=== PATIENT | male | born 1990 | race Caucasian/White ===

== ENCOUNTER 2016-08-23 10:47 | Emergency (ER) | payer OTHER ==
[2016-08-23 11:33] VITALS: RESP 20
--- NOTE | 2016-08-23 12:56 | ED ---
Skin/Abscess/FB HPI - General Chief complaint: Skin/Abscess/Foreign Body Stated complaint: allergic reaction Time Seen by Provider: 08/23/16 12:48 Source: patient, RN notes reviewed Mode of arrival: ambulatory Limitations: no limitations - History of Present Illness Initial comments: Patient is a 25-year-old male presents to the emergency room for evaluation of bilateral hand rash. Patient states he woke up yesterday morning with both of his hands burning. Patient states the rash has spread over both of his hands through the day today. Patient states his hands are very itchy and burn. Patient states he has red spots all over his hands. Patient denies new detergents or body washes, shampoos, lotions. Patient denies any new plants or pets in the household. Patient denies any new medications. Patient does state he was helping his friend clean out a lawnmower about 3 days ago and might have been exposed to something then. Patient denies fevers or chills. Patient denies headache or dizziness. Patient denies cough or sore throat. Patient denies chest pain or shortness of breath. Patient states he took Motrin with no relief of symptoms. - Related Data Previous Rx's Medication Instructions Recorded Famotidine [Pepcid] 20 mg PO DAILY 5 Days 08/23/16 predniSONE 50 mg PO DAILY 4 Days 08/23/16 Allergies Allergy/AdvReac Type Severity Reaction Status Date / Time No Known Allergies Allergy Verified 08/23/16 11:32 Review of Systems ROS Statement: Those systems with pertinent positive or pertinent negative responses have been documented in the HPI. ROS Other: All systems not noted in ROS Statement are negative. Past Medical History Past Medical History: No Reported History History of Any Multi-Drug Resistant Organisms: None Reported Additional Past Surgical History / Comment(s): eye surgery, kidney surgery Past Psychological History: No Psychological Hx Reported Smoking Status: Former smoker Past Alcohol Use History: None Reported Past Drug Use History: None Reported General Exam - General Exam Comments Initial Comments: Sitting in exam room, no distress. Limitations: no limitations General appearance: alert, in no apparent distress Head exam: Present: atraumatic, normocephalic, normal inspection Eye exam: Present: normal appearance ENT exam: Present: normal exam Neck exam: Present: normal inspection Respiratory exam: Present: normal lung sounds bilaterally. Absent: respiratory distress Cardiovascular Exam: Present: regular rate, normal rhythm, normal heart sounds Extremities exam: Present: normal inspection Back exam: Present: normal inspection Neurological exam: Present: alert, oriented X3, CN II-XII intact Psychiatric exam: Present: normal affect, normal mood Skin exam: Present: warm, dry, other (Dry nonraised erythematous circular lesions over bilateral hands) Course Vital Signs 08/23/16 11:31 Temperature 97.8 F Pulse Rate 53 L Respiratory 20 Rate Blood Pressure 133/86 O2 Sat by Pulse 100 Oximetry Medical Decision Making - Medical Decision Making Patient is a 25-year-old male presents emergency room for evaluation of bilateral hand rash. Rash consistent with possible contact dermatitis of unknown etiology. Patient given Solu-Medrol, Pepcid and Benadryl. Will send patient home with Pepcid and prednisone advised him to follow-up with his primary care provider for reevaluation. Advised patient to return for worsening symptoms. Patient states he understands everything that was discussed with him. Case discussed with Dr. Contreras. Disposition Clinical Impression: Contact dermatitis Disposition: HOME SELF-CARE Condition: Good Instructions: Contact Dermatitis (ED) Additional Instructions: Take Benadryl every 4-6 hours. Take prednisone and Pepcid as directed. Please follow-up with primary care provider in 24-48 hours for reevaluation. If any new symptom arises or symptoms worsen, return to ER as soon as possible. Prescriptions: Famotidine [Pepcid] 20 mg PO DAILY 5 Days predniSONE 50 mg PO DAILY 4 Days Referrals: None,Stated [Primary Care Provider] - 1-2 days Time of Disposition: 13:25
[2016-08-23] MEDS: diphenhydrAMINE 50 MG CAP PO STA (13:14)
[2016-08-23] MEDS: methylPREDNISolone SOD SUCCI 125 MG/2 ML VIAL IM ONE (13:14)
[2016-08-23] MEDS: FAMOTIDINE 20 MG TAB PO STA (13:14)
[2016-08-23 13:48] VITALS: BP 123/56; PULSE 59; TEMP 98.3
== END 2016-08-23 13:40 | disposition home or self-care (01) ==
LOC: EC 10:47
DX: L25.9 Unspecified contact dermatitis, unspecified cause (principal); Z87.891 Personal history of nicotine dependence
CPT/HCPCS: 99283; 96372; J2930

== ENCOUNTER 2021-08-08 12:16 | Inpatient (IN) | payer MEDICARE, OTHER ==
[2021-08-08 13:17] LABS: Basophils # (A) 0.1 k/uL (0-0.2); Basophils % (A) 1 %; Eosinophils # (A) 0.4 k/uL (0-0.7); Eosinophils % (A) 3 %; HCT 48.5 % (39.0-53.0); HGB 17.2 gm/dL (13.0-17.5); Lymphocytes # (A) 1.7 k/uL (1.0-4.8); Lymphocytes % (A) 12 %; MCH 30.4 pg (25.0-35.0); MCHC 35.4 g/dL (31.0-37.0); MCV 85.9 fL (80.0-100.0); Mean Platelet Volume 9.4; Monocytes # (A) 0.6 k/uL (0-1.0); Monocytes % (A) 4 %; Neutrophils # (A) 10.7 k/uL (1.3-7.7); Neutrophils % (A) 78 %; Platelet Count 240 k/uL (150-450); RBC 5.64 m/uL (4.30-5.90); RDW 13.3 % (11.5-15.5); WBC 13.7 k/uL (3.8-10.6)
[2021-08-08 13:32] LABS: Appearance,Urine Cloudy (Clear); Bacteria,Urine Occasional /hpf; Bilirubin,Urine Negative (Negative); Blood,Urine Small (Negative); Color,Urine Light Yellow; Glucose,Urine (UA) Negative (Negative); Ketones,Urine Negative (Negative); Leukocyte Esterase,Urine Large (Negative); Nitrite,Urine Negative (Negative); Protein,Urine Trace (Negative); RBC,Urine 7 /hpf (0-5); Squamous Epithelial Cell,Urine 1 /hpf (0-4); Urobilinogen,Urine <2.0 mg/dL (<2.0); WBC,Urine 91 /hpf (0-5)
[2021-08-08 13:49] LABS: ALT 21 U/L (4-49); AST 34 U/L (17-59); African American GFR (CKD) >90 (>60 ml/min/1.73 sqM); Albumin 4.9 g/dL (3.5-5.0); Alkaline Phosphatase 73 U/L (38-126); Amylase 86 U/L (30-110); Anion Gap 7 mmol/L; Blood Urea Nitrogen 12 mg/dL (9-20); Calcium 9.8 mg/dL (8.4-10.2); Carbon Dioxide 27 mmol/L (22-30); Chloride 105 mmol/L (98-107); Glucose 92 mg/dL (74-99); Lipase 51 U/L (23-300); Non-African American GFR(CKD) >90 (>60 ml/min/1.73 sqM); Sodium 139 mmol/L (137-145); Total Bilirubin 0.9 mg/dL (0.2-1.3); Total Protein 8.4 g/dL (6.3-8.2)
--- NOTE | 2021-08-08 13:51 | ED ---
Abdominal Pain HPI - General Chief Complaint: Abdominal Pain Stated Complaint: Left Side Kidney pain Time Seen by Provider: 08/08/21 12:24 Source: patient, RN notes reviewed Mode of arrival: ambulatory Limitations: no limitations - History of Present Illness Initial Comments: This is a 30-year-old male who presents emergency department for left flank carlos n. Patient was woken up this morning by the flank pain. Denies any abdominal pain. He has not taken anything for the pain at this point. Denies any modifying factors. Pain is described as sharp and stabbing. He did have a right nephrectomy when he was around 6 years old, states that he was told that his kidney was not functioning. Patient denies any dysuria or hematuria. Denies any fevers, chills, nausea, or vomiting. He has no history of kidney stones. MD Complaint: flank pain (left) Radiation: none Migration to: no migration Quality: stabbing, sharp Consistency: constant Associated Symptoms: denies other symptoms - Related Data Home Medications Medication Instructions Recorded Confirmed No Known Home Medications 06/18/17 08/08/21 Allergies Allergy/AdvReac Type Severity Reaction Status Date / Time No Known Allergies Allergy Verified 08/08/21 13:59 Review of Systems ROS Statement: Those systems with pertinent positive or pertinent negative responses have been documented in the HPI. ROS Other: All systems not noted in ROS Statement are negative. Constitutional: Denies: fever, chills ENT: Denies: ear pain, throat pain Respiratory: Denies: cough, dyspnea Cardiovascular: Denies: chest pain, palpitations Gastrointestinal: Denies: abdominal pain, nausea, vomiting, diarrhea Genitourinary: Denies: urgency, dysuria Musculoskeletal: Reports: other (left flank pain) Skin: Denies: rash Neurological: Denies: headache Past Medical History Past Medical History: No Reported History History of Any Multi-Drug Resistant Organisms: None Reported Additional Past Surgical History / Comment(s): eye surgery, kidney surgery Past Psychological History: No Psychological Hx Reported Smoking Status: Current every day smoker Past Alcohol Use History: None Reported Past Drug Use History: Marijuana - Past Family History Mother Family Medical History: No Reported History Father Additional Family Medical History / Comment(s): bone cancer General Exam Limitations: no limitations General appearance: alert, in distress Head exam: Present: atraumatic, normocephalic, normal inspection Respiratory exam: Present: normal lung sounds bilaterally. Absent: respiratory distress, wheezes, rales, rhonchi, stridor Cardiovascular Exam: Present: regular rate, normal rhythm, normal heart sounds. Absent: systolic murmur, diastolic murmur, rubs, gallop, clicks GI/Abdominal exam: Present: soft, normal bowel sounds. Absent: distended, tenderness, guarding, rebound, rigid Back exam: Present: CVA tenderness (L). Absent: CVA tenderness (R) Neurological exam: Present: alert, oriented X3, CN II-XII intact Psychiatric exam: Present: normal affect, normal mood Course Vital Signs 08/08/21 08/08/21 12:18 14:41 Temperature 97.1 F L 97.9 F Pulse Rate 91 78 Respiratory 20 16 Rate Blood Pressure 147/52 138/86 O2 Sat by Pulse 99 98 Oximetry Medical Decision Making - Medical Decision Making This is a 30-year-old male who presents to the emergency department for left flank pain. Lab work obtained revealed an elevated white count with left shift. Urine appears infected, and his computed tomography scan revealed multiple irregularities. Irregularities include mild to moderate hydronephrosis without any identified calculus. He also has prostatomegaly and a cystic structure along the midline of the prostate gland. There is also suggestion that the cystic structure may be causing obstruction and subsequently the hydronephrosis. Also has moderate circumferential bladder wall thickening, consistent with a cystitis. Patient will be given 1 g of IVP Rocephin. Will plan to admit the patient for pain management and further evaluation by urology. Discussed with the patient that because he only has one kidney, we are going to take extra pr ecautions. Patient is in agreement with this plan. This case was discussed in detail with the attending ED physician. Presentation, findings, and treatment plan discussed in detail as well. - Lab Data Result diagrams: 08/08/21 12:58 08/08/21 12:58 Lab Results 08/08/21 08/08/21 08/08/21 Range/Units 12:58 12:58 12:58 WBC 13.7 H (3.8-10.6) k/uL RBC 5.64 (4.30-5.90) m/uL Hgb 17.2 (13.0-17.5) gm/dL Hct 48.5 (39.0-53.0) % MCV 85.9 (80.0-100.0) fL MCH 30.4 (25.0-35.0) pg MCHC 35.4 (31.0-37.0) g/dL RDW 13.3 (11.5-15.5) % Plt Count 240 (150-450) k/uL MPV 9.4 Neutrophils % 78 % Lymphocytes % 12 % Monocytes % 4 % Eosinophils % 3 % Basophils % 1 % Neutrophils # 10.7 H (1.3-7.7) k/uL Lymphocytes # 1.7 (1.0-4.8) k/uL Monocytes # 0.6 (0-1.0) k/uL Eosinophils # 0.4 (0-0.7) k/uL Basophils # 0.1 (0-0.2) k/uL Sodium 139 (137-145) mmol/L Potassium 5.0 (3.5-5.1) mmol/L Chloride 105 (98-107) mmol/L Carbon Dioxide 27 (22-30) mmol/L Anion Gap 7 mmol/L BUN 12 (9-20) mg/dL Creatinine 0.86 (0.66-1.25) mg/dL Est GFR (CKD-EPI)AfAm >90 (>60 ml/min/1.73 sqM) Est GFR (CKD-EPI)NonAf >90 (>60 ml/min/1.73 sqM) Glucose 92 (74-99) mg/dL Calcium 9.8 (8.4-10.2) mg/dL Total Bilirubin 0.9 (0.2-1.3) mg/dL AST 34 (17-59) U/L ALT 21 (4-49) U/L Alkaline Phosphatase 73 (38-126) U/L Total Protein 8.4 H (6.3-8.2) g/dL Albumin 4.9 (3.5-5.0) g/dL Amylase 86 (30-110) U/L Lipase 51 (23-300) U/L Urine Color Light Yellow Urine Appearance Cloudy (Clear) Urine pH 6.0 (5.0-8.0) Ur Specific [place] 1.010 (1.001-1.035) Urine Protein Trace H (Negative) Urine Glucose (UA) Negative (Negative) Urine Ketones Negative (Negative) Urine Blood Small H (Negative) Urine Nitrite Negative (Negative) Urine Bilirubin Negative (Negative) Urine Urobilinogen <2.0 (<2.0) mg/dL Ur Leukocyte Esterase Large H (Negative) Urine RBC 7 H (0-5) /hpf Urine WBC 91 H (0-5) /hpf Ur Squamous Epith Cells 1 (0-4) /hpf Urine Bacteria Occasional H (None) /hpf - Radiology Data Radiology results: report reviewed, image reviewed Disposition Clinical Impression: Hydronephrosis of left kidney, Cyst of prostate, Urinary tract infection, H/O right nephrectomy Disposition: ADMITTED IP TO THIS HOSP
--- NOTE | 2021-08-08 14:09 | CT ---
EXAMINATION TYPE: CT abdomen pelvis wo con DATE OF EXAM: 08/08/2021 COMPARISON: None HISTORY: 30-year-old male Abdominal pain, left flank. Possible kidney stone CT DLP: 287.4 mGycm. Automated exposure control for dose reduction was used. TECHNIQUE: Contiguous axial scanning of the abdomen and pelvis without IV contrast. Coronal and sagit georgi reconstructions performed. FINDINGS: Heart normal size without pericardial effusion. Lung bases clear without pleural effusion. Extreme hepatic dome excluded from view. There is some breathing motion artifact noted. Otherwise, visualized noncontrast liver, gallbladder, adrenal glands, spleen, and pancreas show no gr oss of mammography. Some prominent lymph nodes in the right lower quadrant mesentery measuring up to 8 mm. There appears to be some nonspecific fat stranding in the pericecal mesentery on axial image 56. Norm al appendix is partially visualized, coronal image 35. Right kidney surgically absent. There appears to be mild to moderate left hydronephrosis and mild lef t hydroureter. No renal calculus or stone along the course of the ureters seen. Moderate circumferential bladder wall thickening. Prominent bladder distention. Prostate gland enlarg ement measuring 5.3 cm wide. There appears to be a 1.8 cm wide by 2.2 cm craniocaudal cystic lesion o f the midline prostate gland, axial image 69 and sagittal image 56. Scattered mild stool. More moderate to large within the rectum distending up to 6.7 cm wide. No abnor mal fluid collection in the pelvis or pelvic lymphadenopathy seen. Bones: No osseous destructive process. IMPRESSION: 1. 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 Clinically correlate. 2. There is mild to moderate hydronephrosis left kidney but without any suspicious calculus identifi ed. 3. Prostatomegaly at 5.3 cm wide, unusual for patient's age. In addition, there is a 2.2 cm cystic s tructure along the midline prostate gland. Differential considerations include prostatic utricle cyst (which has an association with unilateral renal agenesis), Mullerian duct cyst, cystic change relati ng to BPH, or prostatic abscess. Further clinical correlation recommended. This cystic structure may be causing urethral obstruction given the left-sided hydronephrosis. 4. Moderate circumferential bladder wall thickening could represent chronic bladder wall hypertrophy or cystitis. 5. Nonspecific pericecal fat stranding in the right lower quadrant. The etiology is unclear as we ar e able to visualize segments of a normal appendix. Consider short interval follow-up and further clin ical correlation.
[2021-08-08] MEDS ORDERED: cefTRIAXone IN SWFI 1,000 MG/10 ML SYRINGE IVP STA (14:25)
[2021-08-08] MEDS ORDERED: HYDROmorphone 0.5 MG/0.5 ML SYRINGE IVP STA (14:25)
[2021-08-08] MEDS ORDERED: SODIUM CHLORIDE 0.9% 1,000 ML IV STA (14:25)
[2021-08-08] MEDS ORDERED: ONDANSETRON 4 MG/2 ML VIAL IVP STA (14:25)
[2021-08-08] MEDS ORDERED: LORazepam 2 MG/ML INJ IV PRN (15:53)
[2021-08-08] MEDS ORDERED: HYDROmorphone 1 MG/ML 1 ML SYRINGE IVP PRN (15:53)
[2021-08-08] MEDS ORDERED: ONDANSETRON 4 MG/2 ML VIAL IVP PRN (15:53)
[2021-08-08] MEDS ORDERED: NALOXONE 0.4 MG/ML 1 ML VIAL IV PRN (15:53)
[2021-08-08] MEDS: ONDANSETRON 4 MG/2 ML VIAL IVP PRN (18:44)
[2021-08-08] MEDS: PANTOPRAZOLE 40 MG TABLET PO SCH (20:23)
--- NOTE | 2021-08-08 20:54 | HP ---
HISTORY AND PHYSICAL DATE OF SERVICE: 08/08/2021 CHIEF COMPLAINTS: Abdominal pain as well as pyelonephritis. HISTORY OF PRESENT ILLNESS: This 30-year-old gentleman with a past medical history of a single kidney, right nephrectomy during childhood, history of smoking, not being followed by any primary physician in the outpatient setting, is complaining of significant pain on the left side, mainly on the back, and the patient came to [facility]. Evaluation showed evidence of pyelonephritis. White count is elevated. CT scan of abdomen and pelvis was done which I reviewed personally; it showed left hydronephrosis as well as possible changes in the prostate and a prostatic cyst also. There is no history of any fever, rigor or chills. PAST MEDICAL HISTORY: History of nephrectomy. MEDICATIONS: None. ALLERGIES: NONE. FAMILY HISTORY: Bone cancer in the family. SOCIAL HISTORY: History of smoking, THC. REVIEW OF SYSTEMS: Fourteen-point review of systems negative except as mentioned earlier. PHYSICAL EXAMINATION: Pulse 78, blood pressure 130/83, respiration 16. Oral mucosa moist. NECK: No jugular venous distention. CARDIOVASCULAR: S1, S2 muffled. No S3. No S4. RESPIRATION: Breath sounds diminished at the bases. No rhonchi. No crackles. ABDOMEN: Soft. No mass palpable. Tenderness in the left renal angle present. NERVOUS SYSTEM: No focal deficit. SKIN: No ulcer, rash, bleeding. JOINTS: No active deforming arthropathy. LABS: WBC 13.7. Other labs are noted. ASSESSMENT: 1. Left renal angle pain with possible acute pyelonephritis and hydronephrosis. 2. Rule out prostate megaly or a cyst in the prostate. 3. History of right nephrectomy. RECOMMENDATIONS AND DISCUSSION: In this 30-year-old gentleman who presented with multiple complex medical issues, we will monitor the patient closely. I would recommend broad-spectrum IV antibiotics. Obtain cultures. Urology evaluation. Symptomatic treatment. Prognosis guarded because of multiple complex medical issues. I also recommend that the patient follow up with a primary physician in the outpatient setting. Further recommendations to follow. See orders for further details. MMODL / IJN: [id number] /
--- NOTE | 2021-08-09 07:41 | P.GSCN ---
History of Present Illness Consult date: 08/08/21 History of present illness: 30 yo male who presented to the er with left sided flank pain. He was worried as he has only one kidney. He had his right kidney surgically removed at age 6 as it wasnt working. The etiology is indeterminate to the patient. He has an elevated wbc, normal creatinine, inflamed looking urine and a ct scan showing left hydronephrosis without calyceal blunting.. He also has a possibe cyst in his prostate. He is voiding without difficulty. There is been no hematuria. He has no genital or perineal discomfort. Back pain is much better today. He is afebrile. He is never had a previous urine infection. He has no history kidney stones. Review of Systems All systems: negative - Constitutional Denies fever, Denies weight loss - EENT Eyes: denies blurred vision Ears, nose, mouth and throat: Denies dysphagia - Cardiovascular Denies chest pain, Denies shortness of breath - Respiratory Denies cough, Denies 7 - Gastrointestinal Reports as per HPI - Genitourinary Denies dysuria, Denies hematuria - Integumentary Denies rash, Denies unusual bruising - Neurological Denies headaches, Denies syncope - Hematologic/Lymphatic Denies easy bleeding, Denies easy bruising Past Medical History Past Medical History: No Reported History History of Any Multi-Drug Resistant Organisms: None Reported Additional Past Surgical History / Comment(s): eye surgery, kidney surgery[ right nephrectomy, age 6] Past Psychological History: No Psychological Hx Reported Smoking Status: Current every day smoker Past Alcohol Use History: None Reported Past Drug Use History: Marijuana - Past Family History Mother Family Medical History: No Reported History Father Additional Family Medical History / Comment(s): bone cancer Medications and Allergies Home Medications Medication Instructions Recorded Confirmed Type No Known Home Medications 06/18/17 08/08/21 History Allergies Allergy/AdvReac Type Severity Reaction Status Date / Time No Known Allergies Allergy Verified 08/08/21 13:59 Surgical - Exam Vital Signs Temp Pulse Resp BP Pulse Ox 97.1 F L 91 20 147/52 99 08/08/21 12:18 08/08/21 12:18 08/08/21 12:18 08/08/21 12:18 08/08/21 12:18 - General well developed, well nourished, no distress - Eyes PERRL - ENT no hearing loss - Neck trachea midline - Respiratory normal expansion, normal respiratory effort - Cardiovascular Rhythm: regular - Abdomen Abdomen: soft, non tender - Genitourinary normal penis with no external lesions, testicles present - Integumentary no rash, no growths - Neurologic normal coordination - Musculoskeletal normal posture - Psychiatric oriented to time, oriented to person, oriented to place, speech is normal, memory intact Results - Labs 08/08/21 12:58 08/08/21 12:58 Abnormal Lab Results - Last 24 Hours (Table) 08/08/21 08/08/21 08/08/21 Range/Units 12:58 12:58 12:58 WBC 13.7 H (3.8-10.6) k/uL Neutrophils # 10.7 H (1.3-7.7) k/uL Total Protein 8.4 H (6.3-8.2) g/dL Urine Protein Trace H (Negative) Urine Blood Small H (Negative) Ur Leukocyte Esterase Large H (Negative) Urine RBC 7 H (0-5) /hpf Urine WBC 91 H (0-5) /hpf Urine Bacteria Occasional H (None) /hpf Diabetes panel 08/08/21 Range/Units 12:58 Sodium 139 (137-145) mmol/L Potassium 5.0 (3.5-5.1) mmol/L Chloride 105 (98-107) mmol/L Carbon Dioxide 27 (22-30) mmol/L BUN 12 (9-20) mg/dL Creatinine 0.86 (0.66-1.25) mg/dL Glucose 92 (74-99) mg/dL Calcium 9.8 (8.4-10.2) mg/dL AST 34 (17-59) U/L ALT 21 (4-49) U/L Alkaline Phosphatase 73 (38-126) U/L Total Protein 8.4 H (6.3-8.2) g/dL Albumin 4.9 (3.5-5.0) g/dL Calcium panel 08/08/21 Range/Units 12:58 Calcium 9.8 (8.4-10.2) mg/dL Albumin 4.9 (3.5-5.0) g/dL Pituitary panel 08/08/21 Range/Units 12:58 Sodium 139 (137-145) mmol/L Potassium 5.0 (3.5-5.1) mmol/L Chloride 105 (98-107) mmol/L Carbon Dioxide 27 (22-30) mmol/L BUN 12 (9-20) mg/dL Creatinine 0.86 (0.66-1.25) mg/dL Glucose 92 (74-99) mg/dL Calcium 9.8 (8.4-10.2) mg/dL Adrenal panel 08/08/21 Range/Units 12:58 Sodium 139 (137-145) mmol/L Potassium 5.0 (3.5-5.1) mmol/L Chloride 105 (98-107) mmol/L Carbon Dioxide 27 (22-30) mmol/L BUN 12 (9-20) mg/dL Creatinine 0.86 (0.66-1.25) mg/dL Glucose 92 (74-99) mg/dL Calcium 9.8 (8.4-10.2) mg/dL Total Bilirubin 0.9 (0.2-1.3) mg/dL AST 34 (17-59) U/L ALT 21 (4-49) U/L Alkaline Phosphatase 73 (38-126) U/L Total Protein 8.4 H (6.3-8.2) g/dL Albumin 4.9 (3.5-5.0) g/dL - Imaging CT scan - abdomen: report reviewed, image reviewed Assessment and Plan Assessment: Impression: Urinary tract infection. Mild left-sided hydronephrosis. History of right nephrectomy for "nonfunctioning" kidney. Recommendations: I reviewed the computed tomography scan. I question whether hydro-on the left side is consistent with a mild UPJ obstruction. The most common cause of a nonfunctioning kidney in a young child would be a UPJ obstruction. I will review the x-rays with radiology area and I suspect that as an outpatient further a graphic evaluation to clarify the status of this will solitary left kidney be performed. 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
[2021-08-09] MEDS: PANTOPRAZOLE 40 MG TABLET PO SCH (08:26)
[2021-08-09] MEDS: ACETAMINOPHEN TAB 325 MG TAB PO PRN ×2 (08:26→17:13)
[2021-08-09] MEDS ORDERED: cefTRIAXone 1,000 MG VIAL (IM USE) IM SCH (09:00)
[2021-08-09 10:13] LABS: Basophils # (A) 0.13 X 10*3/uL (0.00-0.10); Eosinophils % (A) 3.2 %; HCT 45.1 % (39.6-50.0); HGB 15.5 g/dL (13.0-17.0); Immature Grans, Automated 0.6 %; Lymphocytes % (A) 15.9 %; MCH 28.8 pg (27.0-32.0); MCHC 34.4 g/dL (32.0-37.0); MCV 83.8 fL (80.0-97.0); Mean Platelet Volume 11.7 fL (9.5-12.2); Monocytes # (A) 1.08 X 10*3/uL (0.20-1.00); Monocytes % (A) 8.6 %; NRBC Per 100 WBC 0 /100 WBCS (0.0-0.0); Neutrophils # (A) 8.88 X 10*3/uL (1.80-7.70); Neutrophils % (A) 70.7 %; Platelet Count 238 X 10*3/uL (140-440); RBC 5.38 X 10*6/uL (4.40-5.60); RDW 12.4 % (11.5-14.5); WBC 12.56 X 10*3/uL (4.50-10.00)
[2021-08-09 10:28] LABS: African American GFR (CKD) 134.2 (60.0-200.0); Anion Gap 12.1 mmol/L (10.00-18.00); Blood Urea Nitrogen 11.7 mg/dL (9.0-27.0); Calcium 9.5 mg/dL (8.7-10.3); Carbon Dioxide 25.9 mmol/L (20.0-27.5); Non-African American GFR(CKD) 115.8 (60.0-200.0); Potassium 3.9 mmol/L (3.5-5.5)
[2021-08-09] MEDS: ONDANSETRON 4 MG/2 ML VIAL IVP PRN ×2 (13:40→20:06)
[2021-08-09] MEDS: HYDROmorphone 0.5 MG/0.5 ML SYRINGE IVP PRN ×2 (13:40→20:05)
--- NOTE | 2021-08-09 14:20 | PN ---
PROGRESS NOTE DATE OF SERVICE: 08/09/2021 This 30-year-old gentleman admitted with abdominal pain as well as pyelonephritis also had hydronephrosis. The cultures are pending at this time. The patient is on IV antibiotics. Urology evaluation is in prognosis. No chest pain. No palpitation. PHYSICAL EXAMINATION: Pulse is 82, blood pressure 151/107, respirations 19. CHEST: Clear to auscultation. CARDIOVASCULAR: S1, S2 muffled. ABDOMEN: Soft. Minimal tenderness in the left side. NERVOUS SYSTEM: No focal deficit. LABS: WBC 12.5. Cultures are pending. ASSESSMENT: 1. Left renal angle pain with possible acute left pyelonephritis and hydronephrosis. 2. Prostatomegaly or prostate cyst. 3. History of right nephrectomy. RECOMMENDATIONS AND DISCUSSION: I recommend to continue current medications, continue with the monitoring, symptomatic treatment. Continue with the current antibiotics. Otherwise, closely monitor. Prognosis guarded. Urology input appreciated. Follow the cultures. Further recommendations to follow. MMODL / IJN: [id number] /
--- NOTE | 2021-08-10 09:27 | P.PN ---
Subjective Progress Note Date: 08/10/21 The patient is in the hospital for urinary tract infection. He has a solitary left kidney. His right kidney is removed at age 6 because it was not working. Etiology is indeterminate to the patient. Computed tomography scan of the left kidney without contrast identifies left hydronephrosis the point of obstruction is not clear. He also has apparent cyst in his prostate perhaps a utricular cyst or mullerian duct cyst. I reviewed the CT with radiology and the plan would be to do a CT urogram upon healing of his urine infection. Cultures are pending. Once the cultures are back he can be sent home on oral antibiotics and follow my office. Objective - Vital Signs Vital signs: Vital Signs Temp 98.6 F 08/10/21 07:57 Pulse 73 08/10/21 07:57 Resp 14 08/10/21 07:57 BP 127/72 08/10/21 07:57 Pulse Ox 100 08/10/21 07:57 Intake & Output 08/09/21 08/10/21 08/10/21 18:59 06:59 18:59 Other: Voiding Method Toilet Toilet # Voids 3 1 # Bowel Movements 1 - Labs CBC & Chem 7: 08/09/21 07:07 08/09/21 07:07 Labs: Abnormal Lab Results - Last 24 Hours (Table) 08/09/21 Range/Units 07:07 WBC 12.56 H (4.50-10.00) X 10*3/uL Immature Gran # 0.07 H (0.00-0.04) X 10*3/uL Neutrophils # 8.88 H (1.80-7.70) X 10*3/uL Monocytes # 1.08 H (0.20-1.00) X 10*3/uL Eosinophils # 0.40 H (0.04-0.35) X 10*3/uL Basophils # 0.13 H (0.00-0.10) X 10*3/uL Microbiology - Last 24 Hours (Table) 08/08/21 21:36 Blood Culture - Preliminary Blood No Growth after 24 hours 08/08/21 12:58 Urine Culture - Preliminary Urine,Clean Catch Gram Neg Bacilli
[2021-08-10] MEDS: HYDROmorphone 0.5 MG/0.5 ML SYRINGE IVP PRN ×3 (09:43→23:10)
[2021-08-10] MEDS: ONDANSETRON 4 MG/2 ML VIAL IVP PRN ×3 (09:43→23:10)
[2021-08-10] MEDS: PANTOPRAZOLE 40 MG TABLET PO SCH (09:43)
--- NOTE | 2021-08-10 17:46 | P.PN ---
Subjective Progress Note Date: 08/10/21 This is a pleasant 30-year-old male who was recently admitted with left side flank pain and is being closely monitored. Urology following and recommends to continue with IV antibiotics and await cultures and treat infection and will follow up with patient outpatient for cystoscope. Preliminary cultures showing gram negative and patient will continue on IV ceftriaxone. Patient denies chest pain or shortness of breath. Patient is afebrile. Encouraged increased activity. Review of systems: Constitutional: No reports of fatigue, fever, or chills Cardiovascular: No reports of chest pain or palpitations Respiratory: No reports of shortness of breath or cough GI: no reports of nausea, no reports of of vomiting, no reports of diarrhea : No reports of dysuria or retention Neurovascular: no reports of generalized weakness Active Medications Acetaminophen (Acetaminophen Tab 325 Mg Tab) 650 mg PO Q6HR PRN PRN Reason: Mild Pain or Fever > 100.5 Last Admin: 08/09/21 17:13 Dose: 650 mg Documented by: Hydromorphone HCl (Hydromorphone 0.5 Mg/0.5 Ml Syringe) 0.5 mg IVP Q3HR PRN PRN Reason: Moderate Pain Last Admin: 08/09/21 20:05 Dose: 0.5 mg Documented by: Hydromorphone HCl (Hydromorphone 1 Mg/Ml 1 Ml Syringe) 1 mg IVP Q3HR PRN PRN Reason: Severe Pain Last Admin: 08/08/21 17:54 Dose: 1 mg Documented by: Ceftriaxone Sodium 1 gm/ (Sodium Chloride) 50 mls @ 100 mls/hr IVPB Q24HR [facility] Last Admin: 08/09/21 08:33 Dose: 100 mls/hr Documented by: Lorazepam (Lorazepam 2 Mg/Ml Inj) 0.5 mg IV Q6HR PRN PRN Reason: Anxiety Naloxone HCl (Naloxone 0.4 Mg/Ml 1 Ml Vial) 0.2 mg IV Q2M PRN PRN Reason: Opioid Reversal Ondansetron HCl (Ondansetron 4 Mg/2 Ml Vial) 4 mg IVP Q6H PRN PRN Reason: Nausea And Vomiting Last Admin: 08/09/21 20:06 Dose: 4 mg Documented by: Pantoprazole Sodium (Pantoprazole 40 Mg Tablet) [facility] Last Admin: 08/09/21 08:26 Dose: 40 mg Documented by: PHYSICAL EXAMINATION: GENERAL: The patient is alert and oriented x4, thin built. HEENT: Pupils are round and equally reacting to light. EOMI. no scleral icterus. No conjunctival pallor. Normocephalic, atraumatic. No pharyngeal erythema. No thyromegaly. CARDIOVASCULAR: S1 and S2 muffled PULMONARY: diminished breath sounds bilaterally with no wheezing or rhonchi noted. ABDOMEN: soft. Nontender on exam. thin. non-distended, normoactive bowel sounds. No palpable organomegaly. left CVA tenderness noted MUSCULOSKELETAL: No joint swelling or deformity. EXTREMITIES: No cyanosis, clubbing, or pedal edema. NEUROLOGICAL: Gross neurological examination did not reveal any focal deficits. SKIN: No rashes. Assessment: Left renal angle pain with possible acute left pyelonephritis and hydronephrosis Prostatomegaly or prostate cyst History of right nephrectomy Acute urinary tract infection, present on admission GI prophylaxis DVT prophylaxis Full code Plan: Recommend to continue with current medications and management with urology tho collins. Patient has been seen and evaluated by urology and will follow up in the outpatient setting once infection is cleared. Patient continues on Ceftriaxone while awaiting cultures. Preliminary cultures showing gram negative. Encouraged increased activity as tolerated. Will await cultures to determine discharge antibiotics. Possible discharge in 24 hours. The impression and plan of care has been dictated by Chani Camacho, nurse practitioner as directed. MD Dolores I have performed a history and examination and MDM of this patient, discussed the same with the dictator, and agree with the dictator's assessment and plan as written ,documented as a scribe. Based on total visit time, I have performed more than 50% of the visit. Any additional findings or plans will be noted. Objective - Vital Signs Vital signs: Vital Signs Temp 98.6 F 08/10/21 07:57 Pulse 73 08/10/21 07:57 Resp 14 08/10/21 07:57 BP 127/72 08/10/21 07:57 Pulse Ox 100 08/10/21 07:57 Intake & Output 08/09/21 08/10/21 08/10/21 18:59 06:59 18:59 Other: Voiding Method Toilet Toilet # Voids 3 1 # Bowel Movements 1 - Labs CBC & Chem 7: 08/09/21 07:07 08/09/21 07:07 Labs: Abnormal Lab Results - Last 24 Hours (Table) 08/09/21 Range/Units 07:07 WBC 12.56 H (4.50-10.00) X 10*3/uL Immature Gran # 0.07 H (0.00-0.04) X 10*3/uL Neutrophils # 8.88 H (1.80-7.70) X 10*3/uL Monocytes # 1.08 H (0.20-1.00) X 10*3/uL Eosinophils # 0.40 H (0.04-0.35) X 10*3/uL Basophils # 0.13 H (0.00-0.10) X 10*3/uL Microbiology - Last 24 Hours (Table) 08/08/21 21:36 Blood Culture - Preliminary Blood No Growth after 24 hours 08/08/21 12:58 Urine Culture - Preliminary Urine,Clean Catch Gram Neg Bacilli
[2021-08-11] MEDS: PANTOPRAZOLE 40 MG TABLET PO SCH (06:50)
[2021-08-11] MEDS: ONDANSETRON 4 MG/2 ML VIAL IVP PRN (07:42)
[2021-08-11] MEDS: HYDROmorphone 0.5 MG/0.5 ML SYRINGE IVP PRN (07:42)
--- NOTE | 2021-08-11 07:46 | P.PN ---
Subjective Progress Note Date: 08/11/21 The patient is in the hospital with a urinary tract infection. 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 I reviewed the computed tomography scan of the left kidney yesterday and it is indeterminate as to whether this is indeed a UPJ obstruction whether there may be obstruction more distally. At some point in time probably as an outpatient a CT urogram would be appropriate. The patient also has an apparent cyst and his prostate which could be congenital. He is growing E. coli which is pretty much pansensitive. From a urologic standpoint I recommend going home on oral antibiotics 30 days. He should follow-up in my office in one week where he'll be set up for a CT urogram and further evaluation of this issue up. He is still having some mild discomfort which I don't think a significant is he is resting very easily with a normal physical examination. Objective - Vital Signs Vital signs: Vital Signs Temp 98.6 F 08/11/21 01:21 Pulse 63 08/11/21 01:21 Resp 17 08/11/21 01:21 BP 132/61 08/11/21 01:21 Pulse Ox 97 08/11/21 01:21 Intake & Output 08/10/21 08/11/21 08/11/21 18:59 06:59 18:59 Other: Voiding Method Toilet Toilet # Voids 4 2 - Labs CBC & Chem 7: 08/09/21 07:07 08/09/21 07:07 Labs: Microbiology - Last 24 Hours (Table) 08/08/21 21:36 Blood Culture - Preliminary Blood No Growth after 48 hours 08/08/21 12:58 Urine Culture - Final Urine,Clean Catch Escherichia coli
--- NOTE | 2021-08-11 12:21 | P.PN ---
Subjective Progress Note Date: 08/11/21 This is a pleasant 30-year-old male who was recently admitted with left side flank pain and is being closely monitored. Urology following and recommends to continue with IV antibiotics and await cultures and treat infection and will follow up with patient outpatient for cystoscope. Preliminary cultures showing gram negative and patient will continue on IV ceftriaxone. Patient denies chest pain or shortness of breath. Patient is afebrile. Encouraged increased activity. 08/11/2021 Patient is seen today in follow up and continues with pain. Per nursing staff patient continues to require IV pain medications for pain. Patient is continued on IV ceftriaxone for UTI with ecoli and will continue. Urology following and appreciate input and recommendations. Will add norco and encouraged increased activity. No fevers. Patient denies pain or discomfort with urinations. Encouraged oral intake and fluids. Review of systems: Constitutional: No reports of fatigue, fever, or chills Cardiovascular: No reports of chest pain or palpitations Respiratory: No reports of shortness of breath or cough GI: no reports of nausea, no reports of of vomiting, no reports of diarrhea : No reports of dysuria or retention, reports continued abdomen pain and flank pain Neurovascular: no reports of generalized weakness Active Medications Acetaminophen (Acetaminophen Tab 325 Mg Tab) 650 mg PO Q6HR PRN PRN Reason: Mild Pain or Fever > 100.5 Last Admin: 08/09/21 17:13 Dose: 650 mg Documented by: Hydromorphone HCl (Hydromorphone 0.5 Mg/0.5 Ml Syringe) 0.5 mg IVP Q3HR PRN PRN Reason: Moderate Pain Last Admin: 08/11/21 07:42 Dose: 0.5 mg Documented by: Hydromorphone HCl (Hydromorphone 1 Mg/Ml 1 Ml Syringe) 1 mg IVP Q3HR PRN PRN Reason: Severe Pain Last Admin: 08/08/21 17:54 Dose: 1 mg Documented by: Ceftriaxone Sodium 1 gm/ (Sodium Chloride) 50 mls @ 100 mls/hr IVPB Q24HR [facility] Last Admin: 08/11/21 06:50 Dose: 100 mls/hr Documented by: Lorazepam (Lorazepam 2 Mg/Ml Inj) 0.5 mg IV Q6HR PRN PRN Reason: Anxiety Naloxone HCl (Naloxone 0.4 Mg/Ml 1 Ml Vial) 0.2 mg IV Q2M PRN PRN Reason: Opioid Reversal Ondansetron HCl (Ondansetron 4 Mg/2 Ml Vial) 4 mg IVP Q6H PRN PRN Reason: Nausea And Vomiting Last Admin: 08/11/21 07:42 Dose: 4 mg Documented by: Pantoprazole Sodium (Pantoprazole 40 Mg Tablet) [facility] Last Admin: 08/11/21 06:50 Dose: 40 mg Documented by: PHYSICAL EXAMINATION: GENERAL: The patient is alert and oriented x4, thin built. HEENT: Pupils are round and equally reacting to light. EOMI. no scleral icterus. No conjunctival pallor. Normocephalic, atraumatic. No pharyngeal erythema. No thyromegaly. CARDIOVASCULAR: S1 and S2 muffled PULMONARY: diminished breath sounds bilaterally with no wheezing or rhonchi noted. ABDOMEN: soft. tender on exam. thin. non-distended, normoactive bowel sounds. No palpable organomegaly. left CVA tenderness noted MUSCULOSKELETAL: No joint swelling or deformity. EXTREMITIES: No cyanosis, clubbing, or pedal edema. NEUROLOGICAL: Gross neurological examination did not reveal any focal deficits. SKIN: No rashes. Assessment: Left renal angle pain with possible acute left pyelonephritis and hydronephrosis Prostatomegaly or prostate cyst History of right nephrectomy Acute urinary tract infection, present on admission GI prophylaxis DVT prophylaxis Full code Plan: Recommend to continue with current medications and management with urology following. Patient has been seen and evaluated by urology and will follow up in the outpatient setting once infection is cleared. Recommend reevaluation by urology as patient continues to have severe pain. Patient continues on Ceftriaxone while cultures are showing ecoli with sensitivity. Encouraged increased activity as tolerated. Will add norco and discussed weaning IV pain medications. Possible discharge in 24 hours. The impression and plan of care has been dictated as scribe by Chani Camacho nurse practitioner as directed. MD Dolores I have performed a history and examination and MDM of this patient, discussed the same with the dictator, documented as a scribe. Based on total visit time, I have performed more than 50% of the visit. Objective - Vital Signs Vital signs: Vital Signs Temp 97.7 F 08/11/21 08:00 Pulse 63 08/11/21 08:00 Resp 14 08/11/21 08:00 BP 135/75 08/11/21 08:00 Pulse Ox 97 08/11/21 08:00 Intake & Output 08/10/21 08/11/21 08/11/21 18:59 06:59 18:59 Other: Voiding Method Toilet Toilet Toilet # Voids 4 2 - Labs CBC & Chem 7: 08/09/21 07:07 08/09/21 07:07 Labs: Microbiology - Last 24 Hours (Table) 08/08/21 21:36 Blood Culture - Preliminary Blood No Growth after 48 hours 08/08/21 12:58 Urine Culture - Final Urine,Clean Catch Escherichia coli
[2021-08-11] MEDS: HYDROcodone/APAP 5-325MG 1 EACH TAB PO PRN ×2 (13:46→19:41)
[2021-08-11] MEDS ORDERED: SENNOSIDES-DOCUSATE SODIUM 1 EACH TAB PO STA (23:10)
[2021-08-12] MEDS: HYDROcodone/APAP 5-325MG 1 EACH TAB PO PRN ×2 (02:52→09:59)
[2021-08-12] MEDS: PANTOPRAZOLE 40 MG TABLET PO SCH (09:58)
[2021-08-12 13:11] LABS: Basophils # (A) 0.1 k/uL (0-0.2); Basophils % (A) 1 %; Eosinophils # (A) 0.4 k/uL (0-0.7); Eosinophils % (A) 5 %; HCT 46.2 % (39.0-53.0); HGB 16.9 gm/dL (13.0-17.5); Hyperchromasia Slight; Lymphocytes # (A) 1.6 k/uL (1.0-4.8); Lymphocytes % (A) 18 %; MCH 30.8 pg (25.0-35.0); MCHC 36.5 g/dL (31.0-37.0); MCV 84.4 fL (80.0-100.0); Mean Platelet Volume 8.5; Monocytes # (A) 0.5 k/uL (0-1.0); Monocytes % (A) 5 %; Neutrophils # (A) 6.1 k/uL (1.3-7.7); Neutrophils % (A) 69 %; Platelet Count 263 k/uL (150-450); RBC 5.48 m/uL (4.30-5.90); RDW 13.1 % (11.5-15.5); WBC 8.9 k/uL (3.8-10.6)
[2021-08-12 14:27] VITALS: BP 147/80; PULSE 60; RESP 18; TEMP 97.6
--- NOTE | 2021-08-13 15:06 | P.DS ---
Providers Date of admission: 08/08/21 16:00 Attending physician: Fede Ayala MD Consults: 08/08/21 15:53 Consult Physician Urgent Consulting Provider: Jackson Carmona Consult Reason/Comments: Left hydronephrosis, cyst on prostate Do you want consulting provider notified?: Yes Primary care physician: Stated None Hospital Course: Final Diagnosis Left renal angle pain with possible acute left pyelonephritis and hydronephrosis Prostatomegaly or prostate cyst History of right nephrectomy Acute urinary tract infection, present on admission Discharge Disposition Patient stable for discharge on oral antibiotics follow up with urology next week for cystoscopy. Needs to establish care with primary care provider. Hospital Course This is a pleasant 30 year old male who presents to hospital with left sided flank pain. Urology evaluation recommends IV antibiotics and cultures were taken. Blood culture negative. Urine culture showing E.Coli. Urology will see patient in the office for cystoscopy and ongoing evaluation, recommends 30 days of oral antibiotics on discharge. Patient received IV rocephin while inpaitent and was discharged on oral Cipro. Past medical history significant for right nephrectomy at age 6, eye surgery, current every day smoker and marijuana use. Abdomen pelvis CT shows surgically absent right kidney, mild to moderate hydronephrosis left kidney, prostatomegaly unusual for patients age, prostate cyst. Differentials include cyst vs prostate abscess. Consider the cystic structure causing urethral obstruction given left sided hydonephrosis. Moderate circumferential bladder wall thickening could represent chronic bladder wall hypertrophy or cystitis. Nonspecific pericecal fat stranding RLQ. Presents with white count of 13.7, improved to 8.9 with IV fluids and antibiot ics Electrolyte panel unremarkable 08/12/2021 Patient evlaluated today resting in bed. Still with pain to LLQ which has been consistent since admission. Tender to palpation. Given pain medication for discharge however advised to establish care with primary provider for ongoing pain management as needed. Will follow up with urology in the office next week and patient also referred to infectious disease on discharge. Vitals stable, afebrile, labs have normalized. Tolerating diet, no nausea, vomiting, or diarrhea. No chest pain, cough or shortness of breath. Focal neurological exam is negative. Lungs are clear S1 S2 auscultated. Focal neurological exam negative. Please see medication reconciliation for a list of current medications. Thank you for allowing us to participate in the care of this patient. The impression and plan of care has been dictated by Maricarmen Altman, Nurse Practitioner as directed. Dr. Anh MD I have performed a history and physical examination and medical decision making of this patient, discussed the same with the dictator, and agree with the dictators assessment and plan as written, documented as a scribe. Based on total visit time, I have performed more than 50% of this visit. Patient Condition at Discharge: Stable Plan - Discharge Summary New Discharge Prescriptions: New Acetaminophen Tab [Tylenol] 650 mg PO Q6HR PRN #30 tab PRN Reason: Mild Pain Or Fever > 100.5 Ciprofloxacin HCl [Cipro] 500 mg PO BID 28 Days #56 tab traMADol HCl [Ultram] 50 mg PO Q8HR PRN 3 Days #9 tab PRN Reason: Pain Discharge Medication List Acetaminophen Tab [Tylenol] 650 mg PO Q6HR PRN #30 tab 08/11/21 [Rx] Ciprofloxacin HCl [Cipro] 500 mg PO BID 28 Days #56 tab 08/12/21 [Rx] traMADol HCl [Ultram] 50 mg PO Q8HR PRN 3 Days #9 tab 08/12/21 [Rx] Follow up Appointment(s)/Referral(s): Ankit Lim MD [REFERRING] - 1 Week (If you would like to have Dr. Lim as your PCP please call office to set up your appointment. Thank you,) Shashi Barger MD [STAFF PHYSICIAN] - 1 Week (Office closed. Please call Sunday for your appointment) Jackson Carmona MD [STAFF PHYSICIAN] - 1 Week (needs cystoscopy. Please call office Sunday for appt) Ambulatory/Diagnostic Orders: Complete Blood Count w/diff [LAB.AMB] Time Frame: 5 Days, Location: None Selected Patient Instructions/Handouts: Hydronephrosis (DC) Activity/Diet/Wound Care/Special Instructions: Activity limited until follow up follow up with urology in one week continue taking antibiotics until finished encourage fluids and rest watch for fevers, decreased urine output continue current diet follow up primary care provider to establish Discharge Disposition: HOME SELF-CARE
== END 2021-08-12 16:37 | disposition home or self-care (01) | DRG 690 ==
LOC: EC 12:16 → 4SSUR 16:00
PROVIDERS: ADMIT Internal Medicine; ATTEND Internal Medicine
DX: N13.6 Pyonephrosis (principal); B96.20 Unspecified Escherichia coli [E. coli] as the cause of diseases classified elsewhere; F17.210 Nicotine dependence, cigarettes, uncomplicated; N42.83 Cyst of prostate; Z90.5 Acquired absence of kidney; N40.1 Benign prostatic hyperplasia with lower urinary tract symptoms; Z80.8 Family history of malignant neoplasm of other organs or systems
CPT/HCPCS: 36415; 74176; 80048; 80053; 81001; 82150; 83690; 85025; 87040; 87077; 87086; 87186; 96361; 96374; 96375; 99285

== ENCOUNTER 2021-08-15 01:12 | Emergency (ER) | payer MEDICARE, OTHER ==
[2021-08-15] MEDS ORDERED: PROCHLORPERAZINE INJ 10 MG/2 ML VIAL IVP STA (01:48)
[2021-08-15] MEDS ORDERED: MORPHINE SULFATE 4 MG/ML SYRINGE IV STA (01:48)
[2021-08-15] MEDS ORDERED: SODIUM CHLORIDE 0.9% 1,000 ML IV STA (01:48)
--- NOTE | 2021-08-15 01:50 | ED ---
Recheck HPI - General Chief Complaint: Nausea/Vomiting/Diarrhea Stated Complaint: Vomiting Time Seen by Provider: 08/15/21 01:23 Source: patient, RN notes reviewed, old records reviewed Mode of arrival: ambulatory Limitations: no limitations - History of Present Illness Initial Comments: This is a 22-year-old male to the ER for evaluation today. Patient's presenting today for evaluation regards to significant nausea and vomiting. Patient does have significant nausea vomiting currently. Patient coming in as he is recently diagnosed with urinary tract infection kidney infection hydronephrosis. Patient is on antibiotics for UTI was recently admitted to the hospital unable to currently keep any medications down due to the nausea vomiting MD Complaint: needs IV antibiotics, other (Persistent nausea vomiting and pain) -: hour(s) Returns Today for: needs IV antibiotics, persistent/worsening pain related to initial visit Symptoms Since Prior Visit: worsening pain Associated Symptoms: nausea, abdominal pain Treatments Prior to Arrival: other (9) - Related Data Previous Rx's Medication Instructions Recorded Acetaminophen Tab [Tylenol] 650 mg PO Q6HR PRN #30 tab 08/11/21 Ciprofloxacin HCl [Cipro] 500 mg PO BID 28 Days #56 tab 08/12/21 traMADol HCl [Ultram] 50 mg PO Q8HR PRN 3 Days #9 tab 08/12/21 Allergies Allergy/AdvReac Type Severity Reaction Status Date / Time No Known Allergies Allergy Verified 08/15/21 01:16 Review of Systems ROS Statement: Those systems with pertinent positive or pertinent negative responses have been documented in the HPI. ROS Other: All systems not noted in ROS Statement are negative. Past Medical History Past Medical History: No Reported History History of Any Multi-Drug Resistant Organisms: None Reported Additional Past Surgical History / Comment(s): eye surgery, kidney surgery[ right nephrectomy, age 6] Past Psychological History: No Psychological Hx Reported Smoking Status: Current every day smoker Past Alcohol Use History: None Reported Past Drug Use History: Marijuana - Past Family History Mother Family Medical History: No Reported History Father Additional Family Medical History / Comment(s): bone cancer General Exam General appearance: alert, in no apparent distress Head exam: Present: atraumatic, normocephalic, normal inspection Eye exam: Present: normal appearance, PERRL, EOMI. Absent: scleral icterus, conjunctival injection, periorbital swelling ENT exam: Present: normal exam, mucous membranes moist Neck exam: Present: normal inspection. Absent: tenderness, meningismus, lymphadenopathy Respiratory exam: Present: normal lung sounds bilaterally. Absent: respiratory distress, wheezes, rales, rhonchi, stridor Cardiovascular Exam: Present: regular rate, normal rhythm, normal heart sounds. Absent: systolic murmur, diastolic murmur, rubs, gallop, clicks GI/Abdominal exam: Present: soft, normal bowel sounds. Absent: distended, tenderness, guarding, rebound, rigid Extremities exam: Present: normal inspection, full ROM, normal capillary refill. Absent: tenderness, pedal edema, joint swelling, calf tenderness Back exam: Present: normal inspection Neurological exam: Present: alert, oriented X3, CN II-XII intact Psychiatric exam: Present: normal affect, normal mood Skin exam: Present: warm, dry, intact, normal color. Absent: rash Course Vital Signs 08/15/21 08/15/21 01:13 03:31 Temperature 97.1 F L 98.4 F Pulse Rate 80 89 Respiratory 18 16 Rate Blood Pressure 132/84 131/80 O2 Sat by Pulse 100 98 Oximetry - Reevaluation(s) Reevaluation #1: 08/15/21 01:55 Medical record is reviewed Reevaluation #2: 08/15/21 01:55 Patient has significant improvement in symptoms here in the ER Reevaluation #3: 08/15/21 01:55 Patient informed results and questions answered Medical Decision Making - Medical Decision Making 30-year-old male for nausea vomiting wheezes take antibiotics for UTI. Patient states his vomiting is resolved he feels improved and can be discharged home - Lab Data Result diagrams: 08/15/21 01:50 08/15/21 01:50 Lab Results 08/15/21 08/15/21 Range/Units 01:50 01:50 WBC 13.1 H (3.8-10.6) k/uL RBC 5.44 (4.30-5.90) m/uL Hgb 16.2 (13.0-17.5) gm/dL Hct 45.5 (39.0-53.0) % MCV 83.8 (80.0-100.0) fL MCH 29.8 (25.0-35.0) pg MCHC 35.6 (31.0-37.0) g/dL RDW 12.4 (11.5-15.5) % Plt Count 232 (150-450) k/uL MPV 8.9 Neutrophils % 83 % Lymphocytes % 7 % Monocytes % 5 % Eosinophils % 4 % Basophils % 1 % Neutrophils # 10.9 H (1.3-7.7) k/uL Lymphocytes # 0.9 L (1.0-4.8) k/uL Monocytes # 0.6 (0-1.0) k/uL Eosinophils # 0.5 (0-0.7) k/uL Basophils # 0.1 (0-0.2) k/uL Hyperchromasia Slight Sodium 138 (137-145) mmol/L Potassium 3.9 (3.5-5.1) mmol/L Chloride 99 (98-107) mmol/L Carbon Dioxide 27 (22-30) mmol/L Anion Gap 12 mmol/L BUN 17 (9-20) mg/dL Creatinine 0.94 (0.66-1.25) mg/dL Est GFR (CKD-EPI)AfAm >90 (>60 ml/min/1.73 sqM) Est GFR (CKD-EPI)NonAf >90 (>60 ml/min/1.73 sqM) Glucose 95 (74-99) mg/dL Calcium 9.2 (8.4-10.2) mg/dL Phosphorus 3.9 (2.5-4.5) mg/dL Magnesium 1.8 (1.6-2.3) mg/dL Total Bilirubin 1.2 (0.2-1.3) mg/dL AST 25 (17-59) U/L ALT 16 (4-49) U/L Alkaline Phosphatase 84 (38-126) U/L Total Protein 7.9 (6.3-8.2) g/dL Albumin 4.7 (3.5-5.0) g/dL Disposition Clinical Impression: Urinary tract infection, Nausea & vomiting Disposition: HOME SELF-CARE Condition: Fair Instructions (If sedation given, give patient instructions): Acute Nausea and Vomiting (ED) Is patient prescribed a controlled substance at d/c from ED?: No Referrals: None,Stated [Primary Care Provider] - 1-2 days
[2021-08-15 02:21] LABS: Basophils # (A) 0.1 k/uL (0-0.2); Basophils % (A) 1 %; Eosinophils # (A) 0.5 k/uL (0-0.7); Eosinophils % (A) 4 %; HCT 45.5 % (39.0-53.0); HGB 16.2 gm/dL (13.0-17.5); Hyperchromasia Slight; Lymphocytes # (A) 0.9 k/uL (1.0-4.8); Lymphocytes % (A) 7 %; MCH 29.8 pg (25.0-35.0); MCHC 35.6 g/dL (31.0-37.0); MCV 83.8 fL (80.0-100.0); Mean Platelet Volume 8.9; Monocytes # (A) 0.6 k/uL (0-1.0); Monocytes % (A) 5 %; Neutrophils # (A) 10.9 k/uL (1.3-7.7); Neutrophils % (A) 83 %; Platelet Count 232 k/uL (150-450); RBC 5.44 m/uL (4.30-5.90); RDW 12.4 % (11.5-15.5); WBC 13.1 k/uL (3.8-10.6)
[2021-08-15 02:22] LABS: ALT 16 U/L (4-49); AST 25 U/L (17-59); African American GFR (CKD) >90 (>60 ml/min/1.73 sqM); Albumin 4.7 g/dL (3.5-5.0); Alkaline Phosphatase 84 U/L (38-126); Anion Gap 12 mmol/L; Blood Urea Nitrogen 17 mg/dL (9-20); Calcium 9.2 mg/dL (8.4-10.2); Carbon Dioxide 27 mmol/L (22-30); Chloride 99 mmol/L (98-107); Glucose 95 mg/dL (74-99); Magnesium 1.8 mg/dL (1.6-2.3); Non-African American GFR(CKD) >90 (>60 ml/min/1.73 sqM); Phosphorus 3.9 mg/dL (2.5-4.5); Potassium 3.9 mmol/L (3.5-5.1); Sodium 138 mmol/L (137-145); Total Bilirubin 1.2 mg/dL (0.2-1.3); Total Protein 7.9 g/dL (6.3-8.2)
[2021-08-15 03:32] VITALS: BP 131/80; PULSE 89; RESP 16; TEMP 98.4
== END 2021-08-15 03:30 | disposition home or self-care (01) ==
LOC: EC 01:12
DX: N39.0 Urinary tract infection, site not specified (principal); F17.200 Nicotine dependence, unspecified, uncomplicated; F12.90 Cannabis use, unspecified, uncomplicated
CPT/HCPCS: 36415; 80053; 83735; 84100; 85025; 99284; 96365; 96375 ×2; J2270; J0780; J0696

== ENCOUNTER → 2021-09-05 | Outpatient (CLI) | payer MEDICARE, OTHER ==
[2021-09-05 13:52] LABS: African American GFR (CKD) >90 (>60 ml/min/1.73 sqM); Blood Urea Nitrogen 15 mg/dL (9-20); Non-African American GFR(CKD) >90 (>60 ml/min/1.73 sqM)
--- NOTE | 2021-09-05 14:48 | CT ---
EXAMINATION TYPE: CT urogram wo/w con DATE OF EXAM: 09/05/2021 COMPARISON: 08/08/2021 HISTORY: Hydronephrosis CT DLP: 1189 mGycm CONTRAST: Performed and without and with IV Contrast, patient injected with 80 mL of Isovue 300. CT Urography was performed with unenhanced followed by enhanced images of the kidneys, ureters and ur inary bladder. Delayed images were obtained. 3d reconstruction was performed at a separate work sta tion. 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 No hydronephrosis. No nephrolithiasis. No distinct renal mass. Urinary bladder grossl y unremarkable. LUNG BASES-: No visible nodule. No infiltrate. LIVER/GB: No calcified gallstones. No space occupying hepatic lesion. Biliary tree is of normal ca liber. PANCREAS: No inflammation. No distinct mass. SPLEEN: No splenic enlargement. No lesion seen. ADRENALS: No nodule. No thickening. BOWEL: Normal appendix. Normal bowel caliber. No inflammation. GENITAL ORGANS: Prostate cyst measuring 1.6 cm. LYMPH NODES: No greater than 1cm abdominal or pelvic lymph nodes are appreciated. AORTA: No significant abnormality. OSSEOUS STRUCTURES: No significant abnormality is seen. OTHER: No significant additional abnormality is seen. IMPRESSION: 1. 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
== END | disposition home or self-care (01) ==
LOC: RADCTMAIN 07:45
PROVIDERS: ATTEND Urology
DX: Q60.0 Renal agenesis, unilateral (principal)
CPT/HCPCS: 82565; 84520; 74178; 36415; 74400; Q9967